=== PATIENT | female | born 1990 | race Two or more races ===

== ENCOUNTER 2017-04-08 05:08 | Inpatient (IN) | payer OTHER ==
[~2017-04-08] VITALS: Ht 154.9 cm; Wt 87.7 kg
[~2017-04-08 05:08] MED LIST: FERR325T16 PO; IBUP800T PO; OXYC-302 PO
[2017-04-08] MEDS ORDERED: OXYTOCIN 30U/ 0.9% NaCL 500ML 500 ML IV SCH (05:54)
[2017-04-08] MEDS ORDERED: METOCLOPRAMIDE 5 MG/ML, 2ML IV ONE (06:00)
[2017-04-08] MEDS ORDERED: SODIUM CITRATE/CITRIC ACID 30 ML UDC PO ONE (06:00)
[2017-04-08] MEDS ORDERED: CEFAZOLIN PMX 1GM/50ML 50 ML IVPB ONE (06:00)
[2017-04-08] MEDS ORDERED: LACTATED RINGERS 1,000 ML IV SCH ×2 (06:00→09:15)
[2017-04-08] MEDS ORDERED: LACTATED RINGERS 1,000 ML IVBOLUS ONE (06:00)
[2017-04-08] MEDS ORDERED: ONDANSETRON 2MG/ML, 2ML IVPush ONE (06:00)
[2017-04-08] MEDS ORDERED: SODIUM CITRATE/CITRIC ACID 30 ML UDC ONE (06:03)
[2017-04-08] MEDS ORDERED: METHYLERGONOVINE 0.2 MG/ML IM ONE (06:04)
[2017-04-08] MEDS ORDERED: METOCLOPRAMIDE 5 MG/ML, 2ML ONE (06:04)
[2017-04-08] MEDS ORDERED: FENTANYL PF 100 MCG/2ML ONE ×2 (06:16→07:14)
[2017-04-08] MEDS: LACTATED RINGERS 1,000 ML IV SCH ×4 (06:25→17:15)
[2017-04-08 06:26] VITALS: BP 121/69
[2017-04-08] MEDS ORDERED: FENTANYL PF 100 MCG/2ML IVPush PRN (06:30)
[2017-04-08] MEDS ORDERED: PLEASE ENTER HEIGHT AND WEIGHT MC SCH (07:00)
[2017-04-08 07:10] LABS: ANISOCYTOSIS 1+
[2017-04-08 07:11] LABS: OVALOCYTES 1+
[2017-04-08] MEDS ORDERED: HYDROmorphone 2 MG/ML, 1ML ONE (07:14)
[2017-04-08] MEDS: OXYTOCIN 30U/ 0.9% NaCL 500ML 500 ML IV SCH ×2 (09:15→19:15)
[2017-04-08] MEDS ORDERED: OXYTOCIN 30U/ 0.9% NaCL 500ML 500 ML ONE (09:17)
[2017-04-08] MEDS ORDERED: METHYLERGONOVINE 0.2 MG/ML IM PRN (09:30)
[2017-04-08] MEDS ORDERED: MISOPROSTOL 200 MCG TABLET PR PRN (09:30)
[2017-04-08] MEDS ORDERED: MEPERIDINE/PF 100 MG/ML IVPush PRN (09:30)
[2017-04-08] MEDS ORDERED: METOCLOPRAMIDE 5 MG/ML, 2ML IV PRN (09:30)
[2017-04-08] MEDS ORDERED: ACETAMINOPHEN 325 MG TABLET PO PRN ×2 (09:30)
[2017-04-08] MEDS ORDERED: morphine SULFATE 10 MG/ML, 1ML IVPush PRN (09:30)
[2017-04-08] MEDS ORDERED: ONDANSETRON 2MG/ML, 2ML IV PRN (09:30)
[2017-04-08] MEDS ORDERED: KETOROLAC 30 MG/1 ML ONE (10:37)
[2017-04-08] MEDS: KETOROLAC 30 MG/1 ML IV SCH ×2 (10:41→17:09)
[2017-04-08 11:28] VITALS: BP 107/67
[2017-04-08] MEDS: OXYcodone/APAP 5/325MG TABLET PO PRN ×3 (11:43→20:32)
[2017-04-08 15:09] VITALS: BP 110/67
[2017-04-08 16:26] LABS: DIFF TOTAL CELLS COUNTED 100 CELL DIFF
[2017-04-08 16:29] LABS: ANISOCYTOSIS 2+
[2017-04-08 16:30] LABS: MICROCYTOSIS 1+
[2017-04-08 16:31] LABS: HYPOCHROMIA 1+
[2017-04-08 16:36] LABS: VERIFY COUNTS? YES
[2017-04-08 18:03] VITALS: BP 99/66
[2017-04-08 20:30] VITALS: BP 107/60
[2017-04-09 00:03] VITALS: BP 111/62
[2017-04-09] MEDS: LACTATED RINGERS 1,000 ML IV SCH ×2 (01:15→02:56)
[2017-04-09] MEDS: OXYcodone/APAP 5/325MG TABLET PO PRN ×5 (02:02→22:11)
[2017-04-09] MEDS: OXYTOCIN 30U/ 0.9% NaCL 500ML 500 ML IV SCH (02:55)
[2017-04-09] MEDS: KETOROLAC 30 MG/1 ML IV SCH ×4 (05:59→18:02)
[2017-04-09 07:25] VITALS: BP 107/56
[2017-04-09] MEDS: DOCUSATE 100 MG CAPSULE PO PRN ×2 (07:40→22:10)
[2017-04-09] MEDS: PRENATAL VIT/IRON/FA 1 EACH TABLET PO SCH (10:09)
[2017-04-09 19:25] VITALS: BP 117/63
[2017-04-10] MEDS: KETOROLAC 30 MG/1 ML IV SCH ×3 (00:09→00:44)
[2017-04-10] MEDS: IBUPROFEN 600 MG TABLET PO PRN ×3 (00:18→13:25)
[2017-04-10] MEDS: OXYcodone/APAP 5/325MG TABLET PO PRN ×2 (02:12→20:00)
[2017-04-10] MEDS: PRENATAL VIT/IRON/FA 1 EACH TABLET PO SCH ×2 (09:00→09:30)
[2017-04-10] MEDS: LACTATED RINGERS 1,000 ML IV SCH ×2 (09:15→17:15)
[2017-04-10] MEDS: DOCUSATE 100 MG CAPSULE PO PRN ×2 (09:30→20:30)
[2017-04-10] MEDS: OXYTOCIN 30U/ 0.9% NaCL 500ML 500 ML IV SCH ×2 (11:15→21:15)
[2017-04-11] MEDS: OXYcodone/APAP 5/325MG TABLET PO PRN ×4 (01:15→14:30)
[2017-04-11] MEDS: LACTATED RINGERS 1,000 ML IV SCH ×2 (01:15→09:15)
[2017-04-11] MEDS: IBUPROFEN 600 MG TABLET PO PRN ×3 (01:15→14:30)
[2017-04-11] MEDS: OXYTOCIN 30U/ 0.9% NaCL 500ML 500 ML IV SCH (07:15)
[2017-04-11] MEDS: PRENATAL VIT/IRON/FA 1 EACH TABLET PO SCH ×2 (07:58→09:00)
[2017-04-11] MEDS: DOCUSATE 100 MG CAPSULE PO PRN (07:58)
== END 2017-04-11 16:45 | disposition home or self-care (01) | DRG 766 ==
LOC: LDOP 05:08 → LDIP 05:55 → 2NW 11:18 → DCLOUNGE 04-11 16:45
PROVIDERS: ADMIT Obstetrics & Gynecology Maternal & Fetal Medicine; ATTEND Obstetrics & Gynecology Maternal & Fetal Medicine
PROC: 10D00Z1 Extraction of Products of Conception, Low, Open Approach (ICD-10-PCS; principal; 2017-04-08)
DX: O34.211 Maternal care for low transverse scar from previous cesarean delivery (principal); Z37.0 Single live birth; Z3A.38 38 weeks gestation of pregnancy; Z82.49 Family history of ischemic heart disease and other diseases of the circulatory system; Z82.3 Family history of stroke
CPT/HCPCS: 36415; 85025; 86850; 86900; J1170; J1885; J2405; J3010; C1765; J2175; J2765; J7120